=== PATIENT | male | born 1990 | race Caucasian/White ===

== ENCOUNTER 2020-01-29 10:12 | Emergency (ER) | payer OTHER ==
[~2020-01-29] VITALS: Ht 182.9 cm; Wt 97.7 kg
[2020-01-29] MEDS ORDERED: NS 500 ML IV ONE (11:45)
--- NOTE | 2020-01-29 11:45 | REPVR ---
PROCEDURE INFORMATION: Exam: CT Head Without Contrast Exam date and time: 01/29/2020 11:35 AM Age: 29 years old Clinical indication: Pain; Headache not specified; Additional info: BROWN, seizure TECHNIQUE: Imaging protocol: Computed tomography of the head without contrast. Radiation optimization: All CT scans at this facility use at least one of these dose optimization techniques: automated exposure control; mA and/or kV adjustment per patient size (includes targeted exams where dose is matched to clinical indication); or iterative reconstruction. COMPARISON: No relevant prior studies available. FINDINGS: Brain: Normal. No hemorrhage. Unremarkable white matter. No mass effect. Ventricles: No ventriculomegaly. Bones/joints: No acute fracture. Sinuses: There is partial opacification of the ethmoid air cells. There is also partial opacification of the visualized left maxillary sinus. There is mucoperiosteal reaction in the frontal sinuses. Mastoid air cells: Visualized mastoid air cells are well aerated. Soft tissues: Unremarkable. IMPRESSION: 1. Normal noncontrast of the brain. 2. If in etiology of a seizure disorder, a follow-up nonemergent MRI is recommended. Electronically signed by: Lester Ureña On 01/29/2020 11:45:00 AM
[2020-01-29 11:59] LABS: BASO % 0.2 % (0.0-1.0); EOS # 0.5 10^3/uL (0.0-0.5); EOS % 2.8 % (0.0-3.0); HEMATOCRIT 48.2 % (42.0-52.0); HEMOGLOBIN 16.3 g/dl (13.5-17.5); LYMPH # 2.5 10^3/uL (1.5-5.0); LYMPH % 13.4 % (24.0-44.0); MEAN CORPUSCULAR HEMOGLOBIN 30.4 pg (27.0-33.0); MEAN CORPUSCULAR HGB CONC 33.8 g/dl (32.0-36.5); MEAN CORPUSCULAR VOLUME 89.8 fl (80.0-96.0); MONO % 5.2 % (0.0-5.0); NEUTROPHILS # 14.6 10^3/uL (1.5-8.5); PLATELET COUNT, AUTOMATED 151 10^3/uL (150-450); RED BLOOD COUNT 5.37 10^6/uL (4.30-6.10); WHITE BLOOD COUNT 18.8 10^3/uL (4.0-10.0)
--- NOTE | 2020-01-29 12:05 | REPVR ---
PROCEDURE INFORMATION: Exam: XR Chest, 1 View Exam date and time: 01/29/2020 11:52 AM Age: 29 years old Clinical indication: Other: AMS; Additional info: Altered mental status TECHNIQUE: Imaging protocol: XR of the chest Views: 1 view. COMPARISON: No relevant prior studies available. FINDINGS: Lungs: No consolidation. Pleural space: No pleural effusion. No pneumothorax. Heart/Mediastinum: No cardiomegaly. Bones/joints: Unremarkable. IMPRESSION: No acute findings. Electronically signed by: Lester Ureña On 01/29/2020 12:05:17 PM
[2020-01-29] MEDS ORDERED: ISOVUE-370 76% 100ML VIAL As Ordered ONE (12:15)
[2020-01-29 12:38] LABS: ACETAMINOPHEN LEVEL < 2.0 UG/ML (10.0-30.0); ALBUMIN 3.8 GM/DL (3.2-5.2); ALT/SGPT 17 U/L (12-78); BILIRUBIN,DIRECT 0.2 MG/DL (0.0-0.2); BILIRUBIN,TOTAL 0.5 MG/DL (0.2-1.0); CK-MB VALUE MASS < 1.0 NG/ML (<3.6); CPK CREATINE PHOSPHOKINASE 215 U/L (39-308); ETHYL ALCOHOL (ETHANOL) < 0.003 % (0.000-0.010); MB/CK RELATIVE INDEX 0.47 (< OR =4); SALICYLATE LEVEL 3.1 MG/DL (5.0-30.0); THYROID STIMULATING HORMONE 0.552 uIU/ML (0.358-3.740); TOTAL PROTEIN 7.1 GM/DL (6.4-8.2); TROPONIN I < 0.02 NG/ML (< 0.10)
--- NOTE | 2020-01-29 12:53 | REPVR ---
PROCEDURE INFORMATION: Exam: CT Angiography Chest With Contrast Exam date and time: 01/29/2020 12:29 PM Age: 29 years old Clinical indication: Shortness of breath; Additional info: SOB RO pe TECHNIQUE: Imaging protocol: Computed tomographic angiography of the chest with intravenous contrast. 3D rendering (Not supervised by radiologist): MIP and/or 3D reconstructed images were created by the technologist. Radiation optimization: All CT scans at this facility use at least one of these dose optimization techniques: automated exposure control; mA and/or kV adjustment per patient size (includes targeted exams where dose is matched to clinical indication); or iterative reconstruction. Contrast material: ISOVUE 370; Contrast volume: 100 ml; Contrast route: INTRAVENOUS (IV); COMPARISON: CR PORTABLE CHEST X-RAY 01/29/2020 11:48 AM FINDINGS: Pulmonary arteries: No pulmonary emboli. Aorta: No aortic aneurysm. No aortic dissection. Lungs: There is a 3 mm noncalcified nodule in the periphery of the left upper lobe on image 87 of series 401. There is a 5 mm triangular nodular density in the right middle lobe on image 111 of series 401. There is minimal right basilar atelectasis. Packet there are small ground-glass infiltrates in the anterior aspect the right lung base which may be secondary to some airways disease. Pleural space: No pneumothorax. No pleural effusion. Heart: No cardiomegaly. No pericardial effusion. Lymph nodes: No enlarged lymph nodes. Bones/joints: No acute fracture. Soft tissues: Unremarkable. IMPRESSION: 1. No evidence of pulmonary embolism. 2. Small noncalcified pulmonary nodules. As per Fleischner Society guidelines for follow-up and management of pulmonary nodules: For patients at low risk (minimal or absent history of smoking and of other known risk factors), recommend follow-up chest CT at 12 months; if unchanged, no further follow-up. For patient at high risk (history of smoking or of other known risk factors), recommend initial follow-up chest CT at 6-12 months, then at 18-24 months if no interval change. Electronically signed by: Lester Ureña On 01/29/2020 12:53:10 PM
[2020-01-29 12:54] LABS: AMPHETAMINES LEVEL URINE NEGATIVE (NEGATIVE); BARBITURATES URINE NEGATIVE (NEGATIVE); BENZODIAZEPINES URINE NEGATIVE (NEGATIVE); CANNABINOIDS URINE NEGATIVE (NEGATIVE); COCAINE METABOLITE URINE NEGATIVE (NEGATIVE); METHADONE URINE NEGATIVE (NEGATIVE); OPIATES URINE NEGATIVE (NEGATIVE); PHENCYCLIDINE URINE NEGATIVE (NEGATIVE)
[2020-01-29] MEDS ORDERED: OXCA300T14 PO (14:35)
[2020-01-29 14:42] VITALS: BP 128/99
--- NOTE | 2020-02-02 13:41 | ED PDOC ---
Post-Departure Follow-Up certified letter sent to pt re formal report of cta chest for fu Moe Johnson MD Feb 02, 2020 13:41
--- NOTE | 2020-02-07 10:39 | ECGEPIP ---
[facility] - ED Test Date: 2020-01-29 Pat Name: MACARIO VAUGHAN Department: Room: - Gender: Male Activity Therapy Specialist: rosanne : 1990 Requested By: Moe Benton Order Number: [id number] Reading MD: Moe Benton Measurements Intervals [place] Rate: 56 P: -15 MI: 139 QRS: 37 QRSD: 88 T: 30 QT: 396 QTc: 383 Interpretive Statements SINUS BRADYCARDIA WITH SINUS ARRHYTHMIA BORDERLINE ECG NO PRIOR DUE TO DOWNTIME SEE SCANNED DOWNTIME REPORT
== END 2020-01-29 14:44 | disposition home or self-care (01) ==
LOC: M ED 10:12
DX: G40.909 Epilepsy, unspecified, not intractable, without status epilepticus (principal); R06.00 Dyspnea, unspecified; R51 Headache; F15.10 Other stimulant abuse, uncomplicated; Z79.899 Other long term (current) drug therapy; F17.210 Nicotine dependence, cigarettes, uncomplicated
CPT/HCPCS: 36415; 70450; 71045; 71275; 80047; 80076; 80307; 81001; 82140; 82550; 82553; 84443; 85025; 87040; 93005; 93041; 94760; 96360; 99285; G0480; Q9967

== ENCOUNTER 2020-02-16 12:55 | Emergency (ER) | payer OTHER ==
[~2020-02-16] VITALS: Ht 175.3 cm; Wt 94.5 kg
[~2020-02-16 12:55] MED LIST: OXCA300T14 PO
[2020-02-16] MEDS ORDERED: ALBUTEROL 90 MCG/ACT 8GM HFA INHALER INH ONE (15:30)
[2020-02-16] MEDS ORDERED: OXcarbazepine 300 MG TAB PO ONE (15:30)
[2020-02-16] MEDS ORDERED: ACETAMINOPHEN 325 MG TAB PO ONE (15:30)
[2020-02-16] MEDS ORDERED: OXCA300T14 PO (16:34)
[2020-02-16] MEDS ORDERED: VENTAER INH (16:34)
[2020-02-16 16:46] VITALS: BP 126/82
== END 2020-02-16 17:43 | disposition home or self-care (01) ==
LOC: M ED 12:55
DX: R51 Headache (principal); J98.01 Acute bronchospasm; G40.909 Epilepsy, unspecified, not intractable, without status epilepticus; Z76.0 Encounter for issue of repeat prescription; F17.200 Nicotine dependence, unspecified, uncomplicated; Z79.51 Long term (current) use of inhaled steroids; Z79.899 Other long term (current) drug therapy

== ENCOUNTER → 2020-03-10 | Outpatient (CLI) | payer OTHER ==
[~2020-03-10] MED LIST changes: +VENTAER INH
--- NOTE | 2020-03-10 13:56 | REP ---
INDICATION: LEFT WRIST PAIN. COMPARISON: None. TECHNIQUE: Four views of the left wrist are obtained. FINDINGS: Overall mineralization pattern is normal. There is an ununited fracture of the navicular waist with secondary sclerosis and subcortical cyst formation at the radio- lucent fracture site. No acute fracture is seen. Bones, joints and soft tissues are otherwise unremarkable. 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 No acute fracture seen. <Electronically signed by Bry Carvajal > 03/10/20 [id number]
== END ==
LOC: M ADAMS 10:53
PROVIDERS: ATTEND Physician Assistant
DX: M25.532 Pain in left wrist (principal); S62.002K Unspecified fracture of navicular [scaphoid] bone of left wrist, subsequent encounter for fracture with nonunion; X58.XXXD Exposure to other specified factors, subsequent encounter; Y92.9 Unspecified place or not applicable

== ENCOUNTER → 2020-10-05 | Outpatient (CLI) | payer OTHER ==
--- NOTE | 2020-10-05 09:00 | PFTRPT ---
Height: 71.00 Inches Weight: 208.00 Lbs BSA: 2.14 Diagnosis: R06.00 DATE: 10/05/2020 ORDERING PHYSICIAN: CHAS Noel Pre and post bronchodilator studies have excellent technical quality. Forced vital capacity is normal. FEV1 is in proportion. Obstructive index is therefore normal. Expiratory limit of the flow-volume loop is normal. No significant bronchodilator response is identified. Total lung capacity is normal. Residual volume is in proportion. Diffusing capacity although reduced is appropriate for alveolar volume. No hemoglobin available for correction. Airway resistance and conductance are normal. IMPRESSION: Diffusing capacity impairment, requires clinical correlation. MTDD
== END ==
LOC: M CARPUL 07:55
PROVIDERS: ATTEND Physician Assistant
DX: R06.00 Dyspnea, unspecified (principal)

== ENCOUNTER → 2020-10-05 | Outpatient (CLI) | payer OTHER ==
[~2020-10-05] MED LIST changes: +ISOVUE-370 76% 100ML VIAL As Ordered ONE
--- NOTE | 2020-10-06 08:26 | REP ---
INDICATION: LUNG NODULE COMPARISON: 01/29/2020 TECHNIQUE: Axial contrast enhanced images from the thoracic inlet to the upper abdomen with coronal and sagittal reformations using 75 ml Isovue 370 intravenous contrast material. This CT examination was performed using the following dose reduction techniques: Automated exposure control, adjustment of mA and/or kv according to the patient's size, and use of iterative reconstruction technique. FINDINGS: Small subpleural nodule along the anterior margin of the left upper lobe and small presumed nodular scarring in the vicinity of the right middle lobe are unchanged. Small area of presumed chronic fibro atelectatic changes in the deep right posterior sulcus again noted. No acute consolidation, new nodule or mass lesion. No pleural effusion. No pneumothorax. Tracheobronchial tree is patent. No axillary, hilar, or mediastinal adenopathy. The mediastinum demonstrates normal thoracic aorta, pulmonary vasculature, and heart/pericardium. Surrounding musculoskeletal structures are intact. Limited upper abdomen demonstrates normal bilateral adrenal glands. IMPRESSION: Small noncalcified densities and chronic fibro atelectatic changes in the deep right posterior sulcus remains stable. Low risk patients require no further investigation while high risk patients may warrant 12 month follow-up to confirm stability/chronicity. <Electronically signed by Travis Tran > 10/06/20 [id number]
== END ==
LOC: M RAD 07:55
PROVIDERS: ATTEND Physician Assistant
DX: R91.1 Solitary pulmonary nodule (principal)
CPT/HCPCS: 71260; Q9967

== ENCOUNTER → 2020-12-18 | Outpatient (CLI) | payer OTHER ==
[~2020-12-18] MED LIST changes: -ISOVUE-370 76% 100ML VIAL As Ordered ONE
--- NOTE | 2020-12-19 10:31 | REP ---
INDICATION: INITIAL STAGING SOLITARY PUMONARY NODULE. COMPARISON: Comparison chest CT study 05 Oct 2020 and 29 January 2020.. TECHNIQUE: Sixty-nine minutes following the intravenous injection of a 8.82 mCi dose of F-18 FDG, three-dimensional PET scintigraphy is acquired from the skull base to the proximal thighs. Triplanar noncontrast CT scanning is acquired through the same anatomic range for attenuation correction, and image registration with scan parameters optimized to minimize radiation exposure to the patient. PET scintigraphy and CT datasets were fused and displayed on a workstation with multiplanar and projection display capability. FINDINGS: Head and neck soft tissues are unremarkable. In the chest, there is no abnormal hypermetabolic uptake. No discernible hypermetabolic uptake is seen in any of the pulmonary parenchymal nodules identified on recent CT study which were stable when compared with the January 2020 study. In the abdomen and pelvis, there is normal hepatic, splenic, gastrointestinal, and genitourinary FDG accumulation. No abnormal hypermetabolic uptake is seen in the abdomen or pelvis. IMPRESSION: Negative PET scintigraphy. Interval CT follow-up recommended. <Electronically signed by Bry Carvajal > 12/19/20 1028
== END ==
LOC: M PLARAD 08:49
PROVIDERS: ATTEND Physician Assistant
DX: R91.1 Solitary pulmonary nodule (principal)

== ENCOUNTER → 2021-08-09 | Outpatient (CLI) | payer OTHER | LOC: M RAD 10:24 | PROVIDERS: ATTEND Physician Assistant | DX: R91.1 Solitary pulmonary nodule (principal) ==